=== PATIENT | female | born 1990 | race Two or more races ===

== ENCOUNTER 2019-07-29 15:15 | Emergency (ER) | payer OTHER, SELFPAY ==
[~2019-07-29] VITALS: Ht 157.5 cm; Wt 84.3 kg
[2019-07-29 15:17] VITALS: BP 110/83
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
[2019-07-29] MEDS ORDERED: DIPH,PERTUSS(ACELL),TET VAC/PF 0.5 ML IM-VACC ONE ×2 (15:43→16:00)
[2019-07-29] MEDS ORDERED: LIDOCAINE-MPF 1%, 5ML ONE (15:43)
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
[2019-07-29] MEDS ORDERED: NEOSPORIN OINT. PKT 1 PACKET ONE (15:58)
[2019-07-29] MEDS ORDERED: LIDOCAINE 1%-EPI 1:100K, 20ML SQ ONE (16:00)
== END 2019-07-29 17:24 | disposition home or self-care (01) ==
LOC: ED 17:00
DX: S81.011A Laceration without foreign body, right knee, initial encounter (principal); W01.0XXA Fall on same level from slipping, tripping and stumbling without subsequent striking against object, initial encounter; Y93.89 Activity, other specified; Y92.828 Other wilderness area as the place of occurrence of the external cause; Y99.8 Other external cause status
CPT/HCPCS: 12032; 90471; 90715; 99284; J3490

== ENCOUNTER 2019-08-08 16:36 | Emergency (ER) | payer OTHER ==
[~2019-08-08] VITALS: Ht 154.9 cm; Wt 85.0 kg
[2019-08-08 16:39] VITALS: BP 120/83
== END 2019-08-08 17:27 | disposition home or self-care (01) ==
LOC: ED 17:15
DX: S81.012D Laceration without foreign body, left knee, subsequent encounter (principal); X58.XXXD Exposure to other specified factors, subsequent encounter
CPT/HCPCS: 99282

== ENCOUNTER 2019-11-25 11:00 | Day surgery (SDC) | payer OTHER ==
[2019-11-22 12:17] LABS: BASOPHILS # (AUTO) 0.03 x10^3/uL (0-0.1); BASOPHILS % (AUTO) 1 % (0-1); EOSINOPHILS # (AUTO) 0.07 x10^3/uL (0-0.4); EOSINOPHILS % (AUTO) 1 % (1-7); LYMPHOCYTES # (AUTO) 1.69 x10^3/uL (1-3.4); LYMPHOCYTES % (AUTO) 31 % (22-44); MD NO; MEAN CORPUSCULAR HEMOGLOBIN 30.1 pg (27.0-34.8); MEAN CORPUSCULAR HGB CONC 33.3 g/dL (32.4-35.8); MEAN CORPUSCULAR VOLUME 90.3 fL (80-100); MONOCYTES # (AUTO) 0.25 x10^3/uL (0.2-0.8); MONOCYTES % (AUTO) 5 % (2-9); NEUTROPHILS # (AUTO) 3.41 x10^3/uL (1.8-6.8); NEUTROPHILS % (AUTO) 63 % (42-75); PLATELET COUNT 226 x10^3/uL (130-400); RED BLOOD COUNT 5.03 x10^6/uL (3.82-5.3); RED CELL DISTRIBUTION WIDTH 13.1 % (9.6-15.2)
[2019-11-22 12:27] LABS: ALBUMIN 3.5 g/dL (3.4-5.0); ANION GAP 4 mmol/L (5-15); CALCIUM 8.6 mg/dL (8.5-10.1); CHLORIDE 110 mmol/L (98-107)
[2019-11-22 12:28] LABS: MICROSCOPIC AUTO
[2019-11-22 12:32] LABS: ALANINE AMINOTRANSFERASE 22 U/L (12-78); ALKALINE PHOSPHATASE 59 U/L (45-117); BILIRUBIN,TOTAL 0.6 mg/dL (0.2-1.0); CREATININE 0.76 mg/dL (0.55-1.02); TOTAL PROTEIN 7.4 g/dL (6.4-8.2)
[~2019-11-25] VITALS: Ht 157.5 cm; Wt 87.9 kg
[2019-11-25 10:35] VITALS: BP 115/81
[2019-11-25 10:50] LABS: HCG UR SG 1.023 (1.003-1.030)
[~2019-11-25 11:00] MED LIST: CHLORHEXIDINE 15 ML UDC MM STA; LACTATED RINGERS 1,000 ML IV SCH; NORE1TAB11 PO
[2019-11-25] MEDS ORDERED: PROPOFOL 10 MG/ML, 20ML ONE (11:19)
[2019-11-25] MEDS ORDERED: LIDOCAINE-MPF 2% ,5ML ONE (11:19)
[2019-11-25] MEDS ORDERED: ROCURONIUM 10MG/ML,5ML ONE (11:19)
[2019-11-25] MEDS ORDERED: GLYCOPYRROLATE 0.2MG/1ML, 5ML ONE (11:19)
[2019-11-25] MEDS ORDERED: DEXAMETHASONE 4 MG/ML, 1ML ONE (11:19)
[2019-11-25] MEDS ORDERED: MIDAZOLAM 1 MG/ML, 2ML ONE (11:20)
[2019-11-25] MEDS ORDERED: FENTANYL PF 100 MCG/2ML ONE ×2 (11:20→13:25)
[2019-11-25] MEDS ORDERED: SILVER NITRATE STICK TP ONE (12:01)
[2019-11-25] MEDS ORDERED: BUPIVACAINE/PF-EPI 0.25% 1:200K ONE (12:01)
[2019-11-25] MEDS ORDERED: CEFAZOLIN 1,000 MG ONE (12:21)
[2019-11-25] MEDS ORDERED: HALOPERIDOL 5 MG/ML IV PRN (12:30)
[2019-11-25] MEDS ORDERED: DIAZEPAM 5 MG/ML, 2ML IVPush PRN (12:30)
[2019-11-25] MEDS ORDERED: HYDROcodone/APAP 7.5-325MG/15ML UDC PO PRN (12:30)
[2019-11-25] MEDS ORDERED: EPHEDRINE 50 MG/ML, 1ML IVPush PRN (12:30)
[2019-11-25] MEDS ORDERED: DIPHENHYDRAMINE 50 MG/ML, 1ML IVPush PRN (12:30)
[2019-11-25] MEDS ORDERED: HYDROmorphone 1 MG/ML, 1ML INJ IVPush PRN (12:30)
[2019-11-25] MEDS ORDERED: OXYcodone 5 MG/5 ML ORAL.SOL UDC PO PRN (12:30)
[2019-11-25] MEDS ORDERED: EPHEDRINE 50 MG/ML, 1ML IM PRN (12:30)
[2019-11-25] MEDS ORDERED: KETOROLAC 30 MG/1 ML IVPush PRN (12:30)
[2019-11-25] MEDS ORDERED: LORazepam 2 MG/ML, 1ML IVPush PRN (12:30)
[2019-11-25] MEDS ORDERED: ACETAMINOPHEN 325 MG TABLET PO PRN (12:30)
[2019-11-25] MEDS ORDERED: METOCLOPRAMIDE 5 MG/ML, 2ML IVPush PRN (12:30)
[2019-11-25] MEDS ORDERED: MEPERIDINE/PF 25MG/0.5ML IVPush PRN (12:30)
[2019-11-25] MEDS ORDERED: ALBUTEROL/IPRATROPIUM 2.5MG/0.5MG, 3 ML NPPB PRN (12:30)
[2019-11-25] MEDS ORDERED: hydrALAzine 20 MG/ML, 1ML IV PRN (12:30)
[2019-11-25] MEDS ORDERED: ONDANSETRON 2MG/ML, 2ML IVPush PRN (12:30)
[2019-11-25] MEDS ORDERED: METHOCARBAMOL 1,000 MG in DEXTROSE 5% 100 ML IV PRN (12:30)
[2019-11-25] MEDS ORDERED: LABETALOL 5MG/ML, 20ML IV PRN (12:30)
[2019-11-25] MEDS ORDERED: MIDAZOLAM 1 MG/ML, 2ML IV PRN (12:30)
[2019-11-25] MEDS: FENTANYL PF 100 MCG/2ML IV PRN ×3 (13:11→13:41)
[2019-11-25] MEDS ORDERED: OXYcodone 5 MG/5 ML ORAL.SOL UDC ONE (13:25)
[2019-11-25] MEDS ORDERED: KETOROLAC 30 MG/1 ML ONE (13:25)
== END 2019-11-25 16:05 | disposition home or self-care (01) ==
LOC: OUT 11:00
PROVIDERS: ATTEND Obstetrics & Gynecology Gynecology
DX: Z30.2 Encounter for sterilization (principal); Z20.828 Contact with and (suspected) exposure to other viral communicable diseases; Q21.0 Ventricular septal defect; E66.9 Obesity, unspecified; Z68.35 Body mass index [BMI] 35.0-35.9, adult; Z91.09 Other allergy status, other than to drugs and biological substances; Z98.890 Other specified postprocedural states; Z79.899 Other long term (current) drug therapy; Z82.49 Family history of ischemic heart disease and other diseases of the circulatory system; Z83.3 Family history of diabetes mellitus
CPT/HCPCS: 36415; 80053; 81001; 81025; 84702; 85025; 86850; 86900; 87086; 87635; 88302; J0690; J1100; J2250; J2704; J3010; J7120

== ENCOUNTER → 2020-11-07 | Outpatient (CLI) | payer OTHER ==
[~2020-11-07] MED LIST changes: -CHLORHEXIDINE 15 ML UDC MM STA; -LACTATED RINGERS 1,000 ML IV SCH
== END | disposition home or self-care (01) ==
LOC: CVU 06:52
PROVIDERS: ATTEND Internal Medicine Cardiovascular Disease
DX: Z01.810 Encounter for preprocedural cardiovascular examination (principal); I36.1 Nonrheumatic tricuspid (valve) insufficiency; Q21.0 Ventricular septal defect
CPT/HCPCS: 93306; 93356